=== PATIENT | female | born 1985 | race Two or more races ===

== ENCOUNTER 2020-12-13 17:35 | Inpatient (IN) ==
[2020-12-13 17:42] VITALS: BMI 34.0
[2020-12-13 18:16] LABS: BILIRUBIN,URINE NEGATIVE (NEGATIVE); BLOOD/HEMOGLOBIN,URINE NEGATIVE (NEGATIVE); GLUCOSE, URINE NEGATIVE (NEGATIVE); KETONES,URINE 1+ (NEGATIVE); LEUKOCYTE ESTERASE ,URINE 3+ (NEGATIVE); NITRITES,URINE NEGATIVE (NEGATIVE); PH,URINE 6.5 (5.0 - 8.0); PROTEIN,URINE NEGATIVE (NEGATIVE); UROBILINOGEN,URINE NORMAL (NORMAL)
[2020-12-13 18:24] LABS: APPEARANCE,URINE HAZY (CLEAR); BACTERIA,URINE 1+ /HPF (NEGATIVE); COLOR,URINE YELLOW (YELLOW); RBC,URINE 0-2 /HPF (0-3)
[2020-12-13] MEDS ORDERED: ANCEF 1 GRAM IV PREMIX* 1 G/50 ML BAG IV ONE (18:24)
[2020-12-13] MEDS ORDERED: LR 1000 ML IV 1,000 ML IV ONE ×3 (18:24→20:51)
[2020-12-13 18:25] LABS: AMORPHOUS SEDIMENT,UR 1+ /HPF (NEGATIVE); SQUAMOUS EPITHELIAL CELL,UR MANY /HPF (NEGATIVE)
[2020-12-13 18:29] LABS: AMNISURE ROM TEST NO MEMBRANES RUPTURE (NO RUPTURE)
[2020-12-13] MEDS ORDERED: DILAUDID INJ ONE (18:47)
[2020-12-13 18:50] LABS: BASOPHILS % (AUTO) 0.3 % (0.2-1.0); EOSINOPHILS # (AUTO) 0.1 x10^3/uL (0.0-0.2); EOSINOPHILS % (AUTO) 0.8 % (0.9-2.9); HEMATOCRIT 32.6 % (36.0-47.0); LYMPHOCYTES # (AUTO) 2.8 X10^3/uL (1.3-2.9); LYMPHOCYTES % (AUTO) 34.2 % (21.0-51.0); MEAN CORPUSCULAR HEMOGLOBIN 29.5 pg (27.0-34.0); MEAN CORPUSCULAR HGB CONC 33.7 g/dL (33.0-35.0); MEAN CORPUSCULAR VOLUME 87.6 fL (80.0-100.0); MEAN PLATELET VOLUME 9.6 fL (7.4-11.0); MONOCYTES # (AUTO) 0.5 x10^3/uL (0.3-0.8); MONOCYTES % (AUTO) 6.2 % (0.0-13.0); NEUTROPHILS # (AUTO) 4.7 x10^3/uL (2.2-4.8); NEUTROPHILS % (AUTO) 58.5 % (42.0-75.0); PLATELET COUNT 188 X10^3/uL (150.0-450.0); RED BLOOD COUNT 3.72 X10^6/uL (3.5-5.4); RED CELL DISTRIBUTION WIDTH 13.8 % (11.6-16.5); WHITE BLOOD COUNT 8.1 X10^3/uL (3.6-10.0)
[2020-12-13 18:52] LABS: BLOOD UREA NITROGEN 5 mg/dL (7-18); CALCIUM 8.9 mg/dL (8.5-10.1); CARBON DIOXIDE 22.4 mmol/L (21-32); CHLORIDE 105 mmol/L (98-107); CREATININE 0.42 mg/dL (0.55-1.02); SODIUM 139 mmol/L (136-145); eGFR NON BLACK RACES > 60 (>60)
[2020-12-13] MEDS ORDERED: PITOCIN ONE ×2 (18:57→20:51)
[2020-12-13] MEDS ORDERED: VERSED ONE (18:57)
[2020-12-13] MEDS ORDERED: EPHEDRINE SULFATE INJ ONE (18:57)
[2020-12-13] MEDS ORDERED: ZOFRAN INJ 4 MG VIAL IVP PRN (20:02)
[2020-12-13] MEDS ORDERED: BENADRYL INJ 50 MG VIAL IVP PRN (20:02)
[2020-12-13] MEDS ORDERED: PHENERGAN INJ 25 MG IM PRN (20:02)
[2020-12-13] MEDS ORDERED: REGLAN INJ 10 MG VIAL IVP PRN (20:02)
[2020-12-13] MEDS ORDERED: D5 1/2 NS 1000 ML 1,000 ML IV ONE (20:30)
[2020-12-13] MEDS ORDERED: PITOCIN IV ONE (20:30)
[2020-12-13] MEDS ORDERED: D5 1/2 NS 1L W PITOCIN 20 UNITS/L 20 UNITS/1,000 ML BAG IV PRN (20:51)
[2020-12-13] MEDS: D5 1/2 NS 1000 ML 1,000 ML IV ONE ×2 (21:17→22:32)
[2020-12-13] MEDS ORDERED: MILK OF MAGNESIA PO PRN (22:07)
[2020-12-13] MEDS ORDERED: AMBIEN PO PRN (22:07)
[2020-12-13] MEDS ORDERED: MOTRIN TAB 800 MG PO PRN (22:07)
[2020-12-13] MEDS ORDERED: PERCOCET TAB 5/325 MG PO PRN (22:07)
[2020-12-13] MEDS ORDERED: TORADOL 60 MG VIAL IVP PRN (22:07)
[2020-12-13] MEDS ORDERED: TORADOL 30 MG VIAL IVP PRN (22:18)
[2020-12-14 04:49] LABS: HEMATOCRIT 27.5 % (36.0-47.0); HEMOGLOBIN 9.4 g/dL (12.0-16.0)
[2020-12-14] MEDS: LR 1000 ML IV 1,000 ML IV SCH ×4 (05:35→21:39)
[2020-12-14] MEDS ORDERED: NS 100 ML IV 100 ML with VENOFER 400 MG IV NR ×2 (08:37)
[2020-12-14] MEDS: MOTRIN TAB 800 MG PO SCH ×3 (09:30→21:39)
[2020-12-14] MEDS: PRENATAL PLUS PO SCH (09:30)
[2020-12-14] MEDS: PERCOCET TAB 5/325 MG PO PRN ×2 (13:05→20:28)
[2020-12-14] MEDS ORDERED: PERCOCET TAB 5/325 MG PO ONE (16:27)
[2020-12-14] MEDS ORDERED: PERCOCET TAB 5/325 MG ONE (16:33)
[2020-12-15] MEDS: PERCOCET TAB 5/325 MG PO PRN (05:01)
[2020-12-15] MEDS: MOTRIN TAB 800 MG PO SCH (06:03)
[2020-12-15 07:53] VITALS: BP 98/53
[2020-12-15] MEDS: PRENATAL PLUS PO SCH (08:22)
[2020-12-15] MEDS ORDERED: ADACEL or BOOSTRIX TDaP VACCINE IM ONE (08:45)
== END 2020-12-15 10:53 | disposition home or self-care (01) | DRG 785 ==
LOC: ER 17:35 → LD 18:17 → MED/SURG 20:20
PROVIDERS: ADMIT Obstetrics & Gynecology Obstetrics; ATTEND Obstetrics & Gynecology Obstetrics
DX: Z30.2 Encounter for sterilization; Z37.0 Single live birth; O34.211 Maternal care for low transverse scar from previous cesarean delivery; Z20.822 Contact with and (suspected) exposure to COVID-19; N85.8 Other specified noninflammatory disorders of uterus